=== PATIENT | male | born 1950 | race African-American/Black ===

== ENCOUNTER 2017-02-07 13:38 | Emergency (ER) | payer OTHER ==
[~2017-02-07] VITALS: Ht 182.9 cm; Wt 85.0 kg
[~2017-02-07 13:38] MED LIST: ADVA500A INH; ALBU17I INH; ALBU6.7H INH; CLON.1 OR; HYDR-2768 PO; LOSA50TA PO; METHO500 PO; NOVOLOGMXP SQ; PRED20 PO
[2017-02-07 13:39] VITALS: BP 156/92; PULSE 99; RESP 20; TEMP 98.2; O2SAT 96
--- NOTE | 2017-02-07 14:05 | PD ---
Physical Exam Time Seen by Provider: 14:04 Narrative Pt presents to the ED requesting medication refill of Advair. States hx of COPD and Asthma. Ran out of inhaler 3 days ago. States has a cough. Denies SOB. States his symptoms are consistent of when he runs out of his inhaler. VSS. Awaiting bed placement. Data Data Last Documented VS Vital Signs Date Time Temp Pulse Resp B/P Pulse Ox O2 Delivery O2 Flow Rate FiO2 02/07/17 13:39 98.2 99 20 156/92 96 Room Air MDM Supervised Visit with DARIUS: Lyndsey Calhoun Feb 07, 2017 14:05
[2017-02-07] MEDS ORDERED: ADVA500A INH (14:42)
[2017-02-07] MEDS ORDERED: PROM6.256 PO (14:43)
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
== END 2017-02-07 14:59 | disposition home or self-care (01) ==
LOC: NEPD 13:38
DX: Z76.0 Encounter for issue of repeat prescription (principal); J44.9 Chronic obstructive pulmonary disease, unspecified; R05 Cough; E11.9 Type 2 diabetes mellitus without complications; B19.20 Unspecified viral hepatitis C without hepatic coma; I10 Essential (primary) hypertension; I25.2 Old myocardial infarction
CPT/HCPCS: 99281

== ENCOUNTER 2017-05-22 16:37 | Emergency (ER) | payer OTHER, MEDICAID ==
[~2017-05-22] VITALS: Ht 182.9 cm; Wt 82.0 kg
[~2017-05-22 16:37] MED LIST changes: +PROM6.256 PO
[2017-05-22 16:43] VITALS: BP 134/74; PULSE 92; RESP 18; TEMP 98.5; O2SAT 92
[2017-05-22] MEDS ORDERED: PROT40TA PO (19:49)
[2017-05-22] MEDS ORDERED: CARA1TAB6 PO (19:49)
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
== END 2017-05-22 19:53 | disposition home or self-care (01) ==
LOC: NEPD 16:37
DX: K25.9 Gastric ulcer, unspecified as acute or chronic, without hemorrhage or perforation (principal)
CPT/HCPCS: 99281

== ENCOUNTER 2018-01-06 13:07 | Emergency (ER) | payer OTHER, MEDICAID ==
[~2018-01-06] VITALS: Ht 182.9 cm; Wt 86.0 kg
[~2018-01-06 13:07] MED LIST changes: -ALBU6.7H INH; +CARA1TAB6 PO; -METHO500 PO; -NOVOLOGMXP SQ; -PRED20 PO; -PROM6.256 PO; +PROT40TA PO
[2018-01-06 13:20] VITALS: BP 118/69; PULSE 91; RESP 16; TEMP 98.1; O2SAT 95
[2018-01-06] MEDS ORDERED: LOSA100T PO (13:50)
[2018-01-06] MEDS ORDERED: CLON0.2T PO (13:50)
[2018-01-06] MEDS ORDERED: ADVA500A INH (13:50)
[2018-01-06] MEDS ORDERED: HYDR-3583 PO (13:50)
[2018-01-06] MEDS ORDERED: VENTAER INH (13:50)
[2018-01-06] MEDS ORDERED: NOVO7030P2 SQ ×2 (13:50)
[2018-01-06] MEDS ORDERED: CYCL10TA PO (14:51)
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
[2018-01-06] MEDS ORDERED: KETOROLAC TROMETHAMINE 60 MG/2 ML (IM) VIAL IM ONE (15:45)
== END 2018-01-06 16:06 | disposition home or self-care (01) ==
LOC: NEPD 13:07
DX: S16.1XXA Strain of muscle, fascia and tendon at neck level, initial encounter (principal); S40.012A Contusion of left shoulder, initial encounter; S60.212A Contusion of left wrist, initial encounter; R51 Headache; I11.0 Hypertensive heart disease with heart failure; I50.9 Heart failure, unspecified; E11.9 Type 2 diabetes mellitus without complications; V49.50XA Passenger injured in collision with unspecified motor vehicles in traffic accident, initial encounter; Z86.73 Personal history of transient ischemic attack (TIA), and cerebral infarction without residual deficits
CPT/HCPCS: 73030; 73110; 99283